=== PATIENT | male | born 1945 | race Native Hawaiian/Other Pacific Islander ===

== ENCOUNTER 2020-04-22 08:09 | Outpatient (CLI) | payer OTHER | END 2020-04-22 21:47 | disposition home or self-care (01) | LOC: LABW 08:09 | DX: R05 Cough (principal); J40 Bronchitis, not specified as acute or chronic; J44.9 Chronic obstructive pulmonary disease, unspecified | CPT/HCPCS: 87070; 87205 ==

== ENCOUNTER 2022-01-02 10:37 | Outpatient (CLI) | payer OTHER | END 2022-01-02 18:52 | disposition home or self-care (01) | LOC: RAD 10:37 | PROVIDERS: ATTEND Internal Medicine | DX: I50.9 Heart failure, unspecified (principal); J44.9 Chronic obstructive pulmonary disease, unspecified; R06.02 Shortness of breath ==

== ENCOUNTER 2022-02-21 11:43 | Outpatient (CLI) | payer OTHER ==
[2022-02-21 12:16] LABS: PLATELET COUNT 326 K/uL (142-355)
== END 2022-02-21 18:53 | disposition home or self-care (01) ==
LOC: LAB 11:43
PROVIDERS: ATTEND Internal Medicine
DX: R91.8 Other nonspecific abnormal finding of lung field (principal); E11.9 Type 2 diabetes mellitus without complications; J44.9 Chronic obstructive pulmonary disease, unspecified; I50.9 Heart failure, unspecified; I25.10 Atherosclerotic heart disease of native coronary artery without angina pectoris; E87.1 Hypo-osmolality and hyponatremia; R06.02 Shortness of breath; I11.0 Hypertensive heart disease with heart failure
CPT/HCPCS: 85027

== ENCOUNTER 2022-02-24 10:09 | Outpatient (CLI) | payer OTHER ==
[2022-02-24 11:26] LABS: POTASSIUM 4.7 mmol/L (3.6-5.2)
== END 2022-02-24 19:59 | disposition home or self-care (01) ==
LOC: LAB 10:09
PROVIDERS: ATTEND Internal Medicine
DX: J44.9 Chronic obstructive pulmonary disease, unspecified (principal)
CPT/HCPCS: 80053

== ENCOUNTER 2022-03-06 10:40 | Outpatient (CLI) | payer OTHER ==
[2022-03-06 11:19] LABS: PLATELET COUNT 264 K/uL (142-355)
[2022-03-06 11:21] LABS: POTASSIUM 4.9 mmol/L (3.6-5.2)
== END 2022-03-06 18:50 | disposition home or self-care (01) ==
LOC: LAB 10:40
PROVIDERS: ATTEND Nurse Practitioner Family
DX: I25.10 Atherosclerotic heart disease of native coronary artery without angina pectoris (principal); I11.0 Hypertensive heart disease with heart failure; E87.1 Hypo-osmolality and hyponatremia; J44.9 Chronic obstructive pulmonary disease, unspecified; E11.9 Type 2 diabetes mellitus without complications
CPT/HCPCS: 80053; 85027

== ENCOUNTER 2022-03-21 11:49 | Outpatient (CLI) | payer OTHER ==
[2022-03-21 12:01] LABS: PLATELET COUNT 467 K/uL (142-355)
[2022-03-21 12:16] LABS: POTASSIUM 4.5 mmol/L (3.6-5.2)
== END 2022-03-21 19:06 | disposition home or self-care (01) ==
LOC: LAB 11:49
PROVIDERS: ATTEND Internal Medicine
DX: I25.10 Atherosclerotic heart disease of native coronary artery without angina pectoris (principal); I11.0 Hypertensive heart disease with heart failure; I50.9 Heart failure, unspecified; E11.9 Type 2 diabetes mellitus without complications; R91.8 Other nonspecific abnormal finding of lung field
CPT/HCPCS: 80053; 85027